=== PATIENT | male | born 1945 | race Caucasian/White ===

== ENCOUNTER → 2017-09-03 | Outpatient (CLI) | payer MEDICARE ==
[~2017-09-03] MED LIST: ASCO100019 PO; ASPI-650 PO; ATOR10TA9 PO; CHOL2000 PO; OMEG1CAP6 PO; VITA0.4T6 PO; zinc PO
== END ==
LOC: CVU 12:56
PROVIDERS: ATTEND Internal Medicine Cardiovascular Disease
DX: I08.2 Rheumatic disorders of both aortic and tricuspid valves (principal)
CPT/HCPCS: 93306

== ENCOUNTER 2017-09-04 07:57 | Day surgery (SDC) | payer MEDICARE, BC ==
[~2017-09-04] VITALS: Ht 182.9 cm; Wt 82.3 kg
[2017-09-04 08:26] VITALS: BP 120/86
[2017-09-04] MEDS ORDERED: OMEG1CAP6 PO (08:39)
[2017-09-04] MEDS ORDERED: ASCO100019 PO (08:39)
[2017-09-04] MEDS ORDERED: VITA0.4T6 PO (08:39)
[2017-09-04] MEDS ORDERED: ATOR10TA9 PO (08:39)
[2017-09-04] MEDS ORDERED: CHOL2000 PO (08:39)
[2017-09-04] MEDS ORDERED: ASPI-650 PO (08:39)
[2017-09-04] MEDS ORDERED: zinc PO (08:41)
[2017-09-04 08:43] LABS: BASOPHILS # (AUTO) 0.02 x10^3/uL (0-0.1); BASOPHILS % (AUTO) 0 % (0-1); EOSINOPHILS # (AUTO) 0.31 x10^3/uL (0-0.4); EOSINOPHILS % (AUTO) 5 % (1-7); LYMPHOCYTES # (AUTO) 1.57 x10^3/uL (1-3.4); LYMPHOCYTES % (AUTO) 24 % (22-44); MD NO; MEAN CORPUSCULAR HEMOGLOBIN 31.9 pg (27.5-34.5); MEAN CORPUSCULAR HGB CONC 34.1 g/dL (33.2-36.2); MEAN CORPUSCULAR VOLUME 93.7 fL (81-97); MEAN PLATELET VOLUME 9.1 fL (7.4-10.4); MONOCYTES # (AUTO) 0.55 x10^3/uL (0.2-0.8); MONOCYTES % (AUTO) 8 % (2-9); NEUTROPHILS # (AUTO) 4.05 x10^3/uL (1.8-6.8); NEUTROPHILS % (AUTO) 62 % (42-75); PLATELET COUNT 219 x10^3/uL (130-400); RED BLOOD COUNT 5.24 x10^6/uL (4.38-5.82)
[2017-09-04 08:53] LABS: ANION GAP 8 mmol/L (5-15); CALCIUM 8.6 mg/dL (8.5-10.1); CHLORIDE 111 mmol/L (98-107); CREATININE 1.19 mg/dL (0.7-1.3)
[2017-09-04] MEDS ORDERED: SODIUM CHLORIDE 0.9% 1,000 ML IV SCH ×2 (09:00→10:40)
[2017-09-04] MEDS ORDERED: TICAGRELOR 90 MG TABLET ONE (09:25)
[2017-09-04] MEDS ORDERED: VERAPAMIL 2.5 MG/ML, 2ML ONE (09:25)
[2017-09-04] MEDS ORDERED: HEPARIN 1,000 UNITS/ML, 10ML ONE (09:25)
[2017-09-04] MEDS ORDERED: FENTANYL PF 100 MCG/2ML ONE (09:25)
[2017-09-04] MEDS ORDERED: NITROGLYCERIN 5 MG/ML, 10ML ONE (09:25)
[2017-09-04] MEDS ORDERED: BIVALIRUDIN 250 MG ONE (09:25)
[2017-09-04] MEDS ORDERED: LIDOCAINE 2%, 20ML ONE (09:25)
[2017-09-04] MEDS ORDERED: MIDAZOLAM 1 MG/ML, 2ML ONE (09:26)
[2017-09-04] MEDS ORDERED: ACETAMINOPHEN 325 MG TABLET PO PRN (11:00)
[2017-09-04] MEDS ORDERED: ATORVASTATIN 10 MG TABLET PO SCH (21:00)
[2017-09-05] MEDS ORDERED: VITAMIN B COMPLEX PO SCH (09:00)
[2017-09-05] MEDS ORDERED: TEMPLATE NON-FORMULARY MED. (Ascorbic Acid** (Vitamin C**) 1,000 MG) PO SCH (09:00)
[2017-09-05] MEDS ORDERED: FOLIC ACID PO SCH (09:00)
[2017-09-05] MEDS ORDERED: ASPIRIN 325 MG TABLET EC PO SCH (09:00)
[2017-09-05] MEDS ORDERED: OMEGA-3/FISH OIL CAPSULE PO SCH (09:00)
[2017-09-05] MEDS ORDERED: [UNRECOGNIZED DRUG - OTHER] PO SCH (09:00)
[2017-09-05] MEDS ORDERED: TEMPLATE NON-FORMULARY MED. (Cholecalciferol (Vitamin D3)** (Vitamin D-3**) 2,000 UNIT) PO SCH (09:00)
[2017-09-05] MEDS ORDERED: ZINC 30 MG PO SCH (09:00)
== END 2017-09-04 12:53 ==
LOC: CACL 07:57
PROVIDERS: ATTEND Internal Medicine Cardiovascular Disease
DX: I25.10 Atherosclerotic heart disease of native coronary artery without angina pectoris (principal); F15.90 Other stimulant use, unspecified, uncomplicated; E78.5 Hyperlipidemia, unspecified; Z79.82 Long term (current) use of aspirin; Z72.89 Other problems related to lifestyle
CPT/HCPCS: 36415; 80048; 85025; 93458; 93571; C1769; C1887; C1894; J1644; J3490; Q9967; J0583; J2250; J3010